=== PATIENT | male | born 1990 | race Caucasian/White ===

== ENCOUNTER 2020-06-25 21:48 | Emergency (ER) | payer OTHER ==
[~2020-06-25] VITALS: Ht 172.7 cm; Wt 83.9 kg
[~2020-06-25 21:48] MED LIST: HYDMOR2 PO
[2020-06-25] MEDS ORDERED: HYDR1TAB94 PO (23:05)
== END 2020-06-25 23:31 | disposition home or self-care (01) ==
LOC: ER 21:48
DX: S92.354A Nondisplaced fracture of fifth metatarsal bone, right foot, initial encounter for closed fracture (principal); F17.210 Nicotine dependence, cigarettes, uncomplicated; X50.1XXA Overexertion from prolonged static or awkward postures, initial encounter
CPT/HCPCS: 73630; 99283-25

== ENCOUNTER 2020-10-26 07:25 | Emergency (ER) | payer OTHER ==
[~2020-10-26] VITALS: Ht 177.8 cm; Wt 124.7 kg
== END 2020-10-26 08:53 | disposition home or self-care (01) ==
LOC: ER 07:25
DX: L02.415 Cutaneous abscess of right lower limb (principal); L03.115 Cellulitis of right lower limb
CPT/HCPCS: 10060; 99283-25; A9270

== ENCOUNTER → 2021-06-15 | Outpatient (CLI) | payer OTHER ==
[~2021-06-15] MED LIST changes: +CLIN300 PO; +HYDR1TAB94 PO; +SERT50 PO
[2021-06-15 20:38] LABS: Alanine Aminotransfer (ALT/SGP 48 U/L (12-78); Albumin, Blood 4.2 g/dL (3.4-5.0); Alk Phos 67 U/L (50-136); Anion Gap 7 mmol/L (6-16); Aspartate Aminotrans (AST/SGOT 37 U/L (12-37); Bilirubin, Total 0.4 mg/dL (0.1-1.0); Blood Urea Nitrogen 21 mg/dL (8-24); Bun/Creatinine Ratio 24.2 (12.0-20.0); CO2, Blood 25 mmol/L (21-32); Calcium, Blood 9.9 mg/dL (8.5-10.1); Chloride, Blood 104 mmol/L (98-108); Creatinine, Blood 0.87 mg/dL (0.60-1.20); Globulin, Blood 4.1 g/dL (2.2-4.0); Glomerular Filtration Rate >60 (60-); Glucose, Blood 83 mg/dL (70-99); Potassium, Blood 4.4 mmol/L (3.5-5.5); Sodium, Blood 136 mmol/L (136-145); Total Protein, Blood 8.3 g/dL (6.4-8.2)
== END | disposition home or self-care (01) ==
LOC: LAB SHORT 19:12 → LAB 19:12
PROVIDERS: Nurse Practitioner Family
DX: F41.9 Anxiety disorder, unspecified (principal); I10 Essential (primary) hypertension
CPT/HCPCS: 80053; 84443

== ENCOUNTER 2023-02-19 00:31 | Emergency (ER) | payer OTHER ==
[~2023-02-19] VITALS: Ht 177.8 cm; Wt 106.6 kg
[2023-02-19 00:40] VITALS: BP 154/112
[2023-02-19] MEDS ORDERED: LISI10 PO (00:48)
[2023-02-19] MEDS ORDERED: AMOCLA875 PO (01:40)
[2023-02-19] MEDS ORDERED: OCUFLOX5 M9 LEFTEAR (01:40)
[2023-02-21] MEDS ORDERED: AMOX-CLAV 875-1 EAC5 PO (05:00)
[2023-02-23] MEDS ORDERED: CIPR500 PO (10:12)
[2023-02-23] MEDS ORDERED: HYDMOR4 PO (10:12)
[2023-02-23] MEDS ORDERED: IBUP800 PO (10:13)
== END 2023-02-19 01:58 | disposition home or self-care (01) ==
LOC: ER 00:31
DX: H66.92 Otitis media, unspecified, left ear (principal); H60.92 Unspecified otitis externa, left ear; Z79.899 Other long term (current) drug therapy; J45.909 Unspecified asthma, uncomplicated; F17.210 Nicotine dependence, cigarettes, uncomplicated
CPT/HCPCS: 96372; 99282-25; A9270; J1885

== ENCOUNTER 2023-02-21 02:46 | Inpatient (IN) | payer OTHER | END 2023-02-23 10:45 | disposition home or self-care (01) | DRG 156 | LOC: ER 02:46 → MEDS 02:47 | PROVIDERS: ADMIT Internal Medicine | PROC: 0HD3XZZ Extraction of Left Ear Skin, External Approach (ICD-10-PCS; principal; 2023-02-21) | DX: H60.92 Unspecified otitis externa, left ear (principal); F17.210 Nicotine dependence, cigarettes, uncomplicated; J45.909 Unspecified asthma, uncomplicated; I10 Essential (primary) hypertension; Z79.899 Other long term (current) drug therapy; Z79.2 Long term (current) use of antibiotics; Z79.811 Long term (current) use of aromatase inhibitors; Z71.6 Tobacco abuse counseling ==